=== PATIENT | male | born 1960 | race Caucasian/White ===

== ENCOUNTER 2023-04-06 08:34 | Day surgery (SDC) | payer OTHER ==
[~2023-04-06 08:34] MED LIST: Bacitracin Oint 1 GM U/D Packet ONE; Bupivacaine 0.5% 50 ML MDV ONE; Lidocaine 1% with EPINEPHrine 1:100,000 50 ML MDV ONE
[2023-04-06 09:25] VITALS: BP 127/79; PULSE 54
[2023-04-06] MEDS ORDERED: Acetaminophen 500 MG Tab PO ONE (09:30)
[2023-04-06] MEDS ORDERED: Lactated Ringers 1,000 ML IV SCH (09:45)
[2023-04-06] MEDS ORDERED: ceFAZolin 2 GM in Premix Bag 1 BAG IV ONE (10:15)
== END 2023-04-06 12:38 | disposition home or self-care (01) ==
LOC: JP.SDS 08:34
PROVIDERS: ATTEND Student in an Organized Health Care Education/Training Program
DX: L72.0 Epidermal cyst (principal); I10 Essential (primary) hypertension; E11.9 Type 2 diabetes mellitus without complications; E78.00 Pure hypercholesterolemia, unspecified; M19.90 Unspecified osteoarthritis, unspecified site; Z79.84 Long term (current) use of oral hypoglycemic drugs; Z79.899 Other long term (current) drug therapy; Z88.8 Allergy status to other drugs, medicaments and biological substances
CPT/HCPCS: 10061; 93005; 99213; A9270; J0690; J7120; J3490